=== PATIENT | male | born 1940 | race Caucasian/White ===

== ENCOUNTER → 2018-08-29 | Outpatient (CLI) | payer MEDICARE ==
[2018-08-28 11:41] LABS: ANION GAP 15.9; CHLORIDE,CL 99 mmol/L (101-111); SODIUM,NA 133 mmol/L (135-145)
--- NOTE | 2018-08-30 08:07 | US ---
CLINICAL HISTORY: 77-year-old hypertensive, diabetic male with "left stroke" now complaining of dizziness ("giddiness"). INTERPRETATION: Minimal nonulcerated, noncalcified mucosal irregularity carotid vessels suggesting early atheromatous plaque. Mildly elevated peak systolic flow velocities carotid artery circulation bilaterally (hypertension). *No hemodynamically significant or surgical stenosis documented by abnormal flow velocities common/internal carotid artery. Normal antegrade vertebral artery flow bilaterally. Peak systolic flow velocity right common carotid artery 149 cm/s; Right internal carotid artery 137 cm/s; right external carotid artery 109 cm/s. IC/CC ratio on the right 0.91. Peak systolic flow velocity left common carotid artery 135 cm/s; left internal carotid artery 138 cm/s; and, left external carotid artery 118 cm/s. IC/CC ratio on the left 1.02. Incidentally demonstrated tiny 5 mm hypoechoic cyst anteriorly lower midpole right lobe of the thyroid gland. CONCLUSION: No surgical stenosis. Tiny cyst right lobe of the thyroid gland.
== END ==
LOC: DL.CLIN 12:48
PROVIDERS: ATTEND Physician Assistant Medical
DX: I10 Essential (primary) hypertension (principal); E11.9 Type 2 diabetes mellitus without complications; R42 Dizziness and giddiness; K40.90 Unilateral inguinal hernia, without obstruction or gangrene, not specified as recurrent; E04.1 Nontoxic single thyroid nodule
CPT/HCPCS: 36415; 80053; 80061; 83036; 85025; 93880

== ENCOUNTER 2020-10-07 09:53 | Emergency (ER) | payer MEDICARE, OTHER ==
--- NOTE | 2020-10-07 11:10 | CT ---
EXAMINATION: Cervical Spine wo Cont SEX: Male AGE: 79 years CLINICAL HISTORY: 79-year-old male injured back of head in ground-level fall. Patient alert and oriented. Scan technique: Volume acquisition of data emergency unenhanced CT scan of the cervical spine obtained with patient lying supine on the Siemens multislice scanner [place], [place]. All data archived in the PACS system for storage, reformatting axial/sagittal/coronal planes and study. Interpretation: Negative exam. 1. No basal skull fracture. 2. Straightening of usual cervical lordosis (positional). 3. *No prevertebral soft tissue swelling, cervical fracture, spondylolisthesis (dislocation) or jumped locked facets. 4. Some reactive atlantoaxial sclerosis but no other evidence for significant cervical disc disease. 5. No cervical rib anomalies. Lung apices clear.
[2020-10-07 11:11] LABS: ANION GAP 13.3 mEq/L (7-13); CHLORIDE,CL 101 mmol/L (98-107); SODIUM,NA 138 mmol/L (136-145)
--- NOTE | 2020-10-07 11:16 | CT ---
EXAMINATION: Head wo Cont SEX: Male AGE: 79 years CLINICAL HISTORY: 79-year-old male injured in fall (hit back of head). Cervical spine "negative". Scan technique: Volume acquisition of data emergency unenhanced CT scan of the head and brain obtained with the patient lying supine on the Siemens multislice scanner [facility]. All data archived in the PACS system for storage, reformatting axial/sagittal/coronal planes and study (bone/soft tissue windows). Interpretation: Abnormal. 1. Asymmetric extracranial subcutaneous soft tissue hematoma over the occipital convexity, posteriorly, on the left. 2. Uniformly thick bony calvarium i.e. no sign of underlying or other skull fracture. 3. No brain contusion or extracerebral/intracranial epidural/subdural hematoma. 4. Atrophy symmetric/consistent with age. No hydrocephalus. Physiologic pineal/symmetric choroid plexus calcifications. 5. No supratentorial or posterior fossa mass lesion. 6. Scattered microvascular ischemic changes in the periventricular white matter (particularly prominent parietal lobe on the left). No sign of acute intracerebral, intraventricular or subarachnoid bleed. 7. Cerebellum and brainstem unremarkable for age. 8. Chronic mucoperiosteal inflammation paranasal sinuses. Dense sclerosis mastoid sinus on the right. CONCLUSION: Scalp hematoma. Paranasal sinusitis. Microvascular ischemic changes. No sign of skull fracture, brain contusion or intracranial bleed.
--- NOTE | 2020-10-07 11:54 | EDM.PDOC ---
ED HPI GENERAL MEDICAL PROBLEM - General Chief Complaint: General Stated Complaint: [id number] FELL BACK AND HIT HEAD AT HOME Time Seen by Provider: 10/07/20 11:21 Source of Information: Reports: Patient History Limitations: Reports: No Limitations - History of Present Illness INITIAL COMMENTS - FREE TEXT/NARRATIVE: This 79 yo male patient reports to the ED due to falling this morning. The patient reports he was in his driveway when he fell this morning. The patient denies any loss of consciousness before, during or after the fall. The patient reports he fell due to dizziness. The patient report increased dizziness over the past 2 days. The patient reports he has not been eating or drinking well over the past week due to not feeling hungry and the water not tasting good. The patient reports no recent changes in his medications. The patient reports he has not been seen by his primary care facility. The patient does use a cane for ambulation. Onset: Today Duration: Hour(s): Location: Reports: Head (Posterior left scalp contusion and abrasion) Quality: Reports: Ache, Dull Severity: Mild Improves with: Reports: None Worsens with: Reports: None Context: Reports: Activity Associated Symptoms: Reports: No Other Symptoms Treatments TRANSPORTATION MODELER: Reports: Other (see below) Other Treatments TRANSPORTATION MODELER: CT and labs - Related Data Allergies Allergy/AdvReac Type Severity Reaction Status Date / Time No Known Allergies Allergy Verified 10/17/18 07:03 Home Meds: Home Meds metFORMIN HCl [Metformin HCl] 1,000 mg PO BID 02/14/18 [History] Dapagliflozin Propanediol [Farxiga] 10 mg PO DAILY 02/26/18 [History] Insulin Detemir [Levemir Flextouch] 40 units SUBCUT DAILY 02/26/18 [History] Tamsulosin HCl [Flomax] 0.4 mg PO DAILY 02/26/18 [History] atorvaSTATin Calcium [Atorvastatin Calcium] 20 mg PO DAILY 02/26/18 [History] Aspirin 81 mg PO DAILY 05/21/18 [History] Oxybutynin [Oxybutynin ER] 10 mg PO DAILY 10/17/18 [History] lisinopriL [Lisinopril] 5 mg PO DAILY 10/17/18 [History] Past Medical History HEENT History: Reports: Other (See Below) Other HEENT History: BILATERAL EYE DRAINAGE/ SOME CRUSTING, PATIENT STATES IT IS NOT PAINFUL AND IS NORMAL FOR HIM Cardiovascular History: Reports: Hypertension, Stents Other Cardiovascular History: pT AND DENIE STENT PLACEMENT Respiratory History: Reports: None Gastrointestinal History: Reports: None Genitourinary History: Reports: Prostate Disorder, Other (See Below) Other Genitourinary History: URINARY HESITANCY Musculoskeletal History: Reports: Arthritis, Back Pain, Chronic, Other (See Below) Other Musculoskeletal History: CHRONIC SHOULDER PAIN Neurological History: Reports: CVA Psychiatric History: Reports: None Endocrine/Metabolic History: Reports: Diabetes, Type II Hematologic History: Reports: None Immunologic History: Reports: None Oncologic (Cancer) History: Reports: None Dermatologic History: Reports: None - Infectious Disease History Infectious Disease History: Reports: Chicken Pox - Past Surgical History Head Surgeries/Procedures: Reports: None HEENT Surgical History: Reports: None Cardiovascular Surgical History: Reports: Other (See Below) Other Cardiovascular Surgeries/Procedures: ANGIOGRAM GI Surgical History: Reports: Colonoscopy, Hernia, Inguinal Other GI Surgeries/Procedures: LAST BM TODAY Male Surgical History: Reports: None Other Male Surgeries/Procedures: DYSURIA Social & Family History - Family History Family Medical History: No Pertinent Family History - Caffeine Use Caffeine Use: Reports: Coffee Other Caffeine Use: 1-2 CUPS COFFEE ED ROS GENERAL - Review of Systems Review Of Systems: Comprehensive ROS is negative, except as noted in HPI. ED EXAM, GENERAL - Physical Exam Exam: See Below Exam Limited By: No Limitations General Appearance: Alert, WD/WN, Mild Distress Eye Exam: Bilateral Eye: EOMI, Normal Inspection, PERRL Ears: Normal External Exam, Normal Canal, Hearing Grossly Normal, Normal TMs Nose: Normal Inspection, Normal Mucosa, No Blood Throat/Mouth: Normal Inspection, Normal Lips, Normal Teeth, Normal Gums, Normal Oropharynx, Normal Voice, No Airway Compromise Head: Other (scalp contusion and abrasion left posterior scalp) Neck: Normal Inspection, Supple, Non-Tender, Full Range of Motion Respiratory/Chest: No Respiratory Distress, Lungs Clear, Normal Breath Sounds, No Accessory Muscle Use, Chest Non-Tender Cardiovascular: Normal Peripheral Pulses, Regular Rate, Rhythm, No Edema, No Gallop, No JVD, No Murmur, No Rub GI/Abdominal: Normal Bowel Sounds, Soft, Non-Tender, No Organomegaly, No Distention, No Abnormal Bruit, No Mass (Male) Exam: Deferred Rectal (Males) Exam: Deferred Back Exam: Normal Inspection, Full Range of Motion, NT Extremities: Normal Inspection, Normal Range of Motion, Non-Tender, Normal Capillary Refill, No Pedal Edema Neurological: Alert, Oriented, CN II-XII Intact, Normal Cognition, Normal Gait, Normal Reflexes, No Motor/Sensory Deficits Psychiatric: Normal Affect, Normal Mood Skin Exam: Warm, Dry, Intact, Normal Color, No Rash Lymphatic: No Adenopathy #1 Interpretation EKG Date: 10/07/20 Time: 11:03 Rhythm: NSR Rate (Beats/Min): 71 [place]: Normal P-Wave: Present QRS: Normal ST-T: Normal QT: Normal Comparison: No Change Course - Vital Signs Last Recorded V/S: Last Vital Signs Temp 96.9 F 10/07/20 10:40 Pulse 75 10/07/20 10:40 Resp 18 10/07/20 10:40 BP 143/65 H 10/07/20 10:40 Pulse Ox 97 10/07/20 10:40 Orthostatic Blood Pressure [ 120/67 Standing] Orthostatic Blood Pressure [ 134/62 Sitting] Orthostatic Blood Pressure [ 127/66 Supine] - Orders/Labs/Meds Labs: Laboratory Tests 10/07/20 10/07/20 10/07/20 Range/Units 10:33 10:45 10:45 WBC 9.0 (5.0-10.0) 10^3/uL RBC 4.38 L (4.6-6.2) 10^6/uL Hgb 13.5 L (14.0-18.0) g/dL Hct 39.8 L (40.0-54.0) % MCV 90.9 (80-100) fL MCH 30.8 (27.0-34.0) pg MCHC 33.9 (33.0-35.0) g/dL Plt Count 310 (150-450) 10^3/uL Neut % (Auto) 73.9 (42.2-75.2) % Lymph % (Auto) 12.1 L (20.5-50.1) % Gilliam % (Auto) 9.4 H (2-8) % Eos % (Auto) 4.4 H (1.0-3.0) % Baso % (Auto) 0.2 (0.0-1.0) % Sodium 138 (136-145) mmol/L Potassium 4.3 (3.5-5.1) mmol/L Chloride 101 (98-107) mmol/L Carbon Dioxide 28 (21-32) mmol/L Anion Gap 13.3 H (7-13) mEq/L BUN 17 (7-18) mg/dL Creatinine 0.76 (0.70-1.30) mg/dL Est Cr Clr Drug Dosing TNP Estimated GFR (MDRD) > 60 BUN/Creatinine Ratio 22.4 (No establ ref range) Glucose 234 H (70-99) mg/dL POC Glucose 235 H (70-99) mg/dL Calcium 8.8 (8.5-10.1) mg/dL Total Bilirubin 0.6 (0.2-1.0) mg/dL AST 15 (15-37) U/L ALT 32 (16-63) U/L Alkaline Phosphatase 115 (46-116) U/L Total Protein 6.4 (6.4-8.2) g/dL Albumin 3.3 L (3.4-5.0) g/dL Globulin 3.1 Albumin/Globulin Ratio 1.06 Departure - Departure Time of Disposition: 12:22 Disposition: Home, Self-Care 01 Condition: Fair Clinical Impression: Fall from ground level, Scalp contusion Sinusitis Qualifiers: Sinusitis location: frontal Chronicity: acute Recurrence: non-recurrent Qualified Code(s): J01.10 - Acute frontal sinusitis, unspecified - Discharge Information *PRESCRIPTION DRUG MONITORING PROGRAM REVIEWED*: Not Applicable *COPY OF PRESCRIPTION DRUG MONITORING REPORT IN PATIENT KIRTI: Not Applicable Instructions: Sinusitis, Adult, [id number], Fall Prevention in the Home, Adult Forms: ED Department Discharge Care Plan Goals: The patient was advised of the examination, lab and CT results during the visit. The patient was discharged with a script for Augmentin (500/125) #20 to take 1 by mouth 2 times per day for 10 days. The patient was encouraged to attempt to eat well balanced meals and drink plenty of fluids. The patient should follow-up with his primary care facility for continued evaluation and further management. If the patient has any additional symptoms or concerns, the patient should either return to the emergency department or visit his primary care facility. Sepsis Event Note (ED) - Evaluation Sepsis Screening Result: No Definite Risk - Focused Exam Vital Signs: Vital Signs Temp Pulse Resp BP Pulse Ox 10/07/20 10:40 96.9 F 75 18 143/65 H 97
== END 2020-10-07 13:14 | disposition home or self-care (01) ==
LOC: DL.ED 09:53
DX: S00.03XA Contusion of scalp, initial encounter (principal); J01.10 Acute frontal sinusitis, unspecified; E11.9 Type 2 diabetes mellitus without complications; I10 Essential (primary) hypertension; Z95.5 Presence of coronary angioplasty implant and graft; Z79.4 Long term (current) use of insulin; Z79.82 Long term (current) use of aspirin; Z79.899 Other long term (current) drug therapy; W22.8XXA Striking against or struck by other objects, initial encounter; Y92.009 Unspecified place in unspecified non-institutional (private) residence as the place of occurrence of the external cause
CPT/HCPCS: 36415; 70450; 72125; 80053; 82947; 85025; 99284-25

== ENCOUNTER → 2023-09-21 | Day surgery (SDC) | payer MEDICARE, OTHER ==
[~2023-09-21] MED LIST: Acetaminophen 325 MG Tab PO PRN; Acetaminophen/Codeine 300-30 MG Tab PO PRN; Ondansetron 4 MG/2 ML SDV IVPUSH PRN
[2023-09-21] MEDS: Tropicamide 1% Ophth Soln 15 ML Bottle EYELF ONE (09:10)
[2023-09-21] MEDS: Timolol Maleate 0.5% Ophth Soln 5 ML Bottle EYELF ONE (09:10)
[2023-09-21] MEDS: Phenylephrine 10% Ophth Soln 5 ML Bot EYELF ONE (09:10)
[2023-09-21] MEDS: Moxifloxacin 0.5% Ophth Soln 3 ML Bottle EYELF ONE (09:10)
[2023-09-21] MEDS: Proparacaine 0.5% Ophth Soln 15 ML Bottle EYELF ONE ×2 (09:10→09:48)
[2023-09-21] MEDS: Sodium Chloride 0.9% 10 ML Syringe FLUSH PRN (09:12)
[2023-09-21] MEDS: Cataract Ophth Solution EYELF ONE (09:12)
[2023-09-21] MEDS: Povidone-Iodine 5% Sterile Ophth Soln 30 ML Bottle EYELF ONE ×2 (09:12→09:48)
[2023-09-21] MEDS: Lidocaine 1% 30 ML SDV ONE (09:48)
[2023-09-21] MEDS: Diclofenac Sodium 0.1% Ophth Soln 5 ML Bottle EYELF ONE (09:48)
[2023-09-21] MEDS: Apraclonidine 0.5% Ophth Soln 5 ML Bot EYELF ONE (09:48)
[2023-09-21] MEDS: Dexamethasone/Neomycin/Polymyxin B Ophth Oint 3.5 GM Tube EYELF ONE (09:48)
[2023-09-21] MEDS: Vancomycin 500 MG SDV EYELF ONE (09:49)
[2023-09-21] MEDS: Dexamethasone 4 MG/ML SDV IOCULAR ONE (09:53)
== END ==
LOC: DL.SDS 08:51
PROVIDERS: ATTEND Ophthalmology
DX: E11.36 Type 2 diabetes mellitus with diabetic cataract (principal); H25.812 Combined forms of age-related cataract, left eye; I10 Essential (primary) hypertension; E78.5 Hyperlipidemia, unspecified; Z79.4 Long term (current) use of insulin; Z79.84 Long term (current) use of oral hypoglycemic drugs; Z79.82 Long term (current) use of aspirin; Z79.899 Other long term (current) drug therapy
CPT/HCPCS: 66984; A9270; J1100; J3370; V2632; 00142; 99100; J3490

== ENCOUNTER 2023-10-17 10:07 | Day surgery (SDC) | payer MEDICARE, OTHER ==
[2023-10-17] MEDS ORDERED: Acetaminophen 325 MG Tab PO PRN (10:15)
[2023-10-17] MEDS ORDERED: Acetaminophen/Codeine 300-30 MG Tab PO PRN (10:15)
[2023-10-17] MEDS ORDERED: Ondansetron 4 MG/2 ML SDV IVPUSH PRN (10:15)
[2023-10-17] MEDS: Sodium Chloride 0.9% 10 ML Syringe FLUSH PRN (10:50)
[2023-10-17] MEDS: Proparacaine 0.5% Ophth Soln 15 ML Bottle EYERT ONE ×2 (10:51→12:00)
[2023-10-17] MEDS: Moxifloxacin 0.5% Ophth Soln 3 ML Bottle EYERT ONE (10:52)
[2023-10-17] MEDS: Tropicamide 1% Ophth Soln 15 ML Bottle EYERT ONE (10:53)
[2023-10-17] MEDS: Povidone-Iodine 5% Sterile Ophth Soln 30 ML Bottle EYERT ONE ×2 (10:53→12:00)
[2023-10-17] MEDS: Phenylephrine 10% Ophth Soln 5 ML Bot EYERT ONE (10:56)
[2023-10-17] MEDS: Timolol Maleate 0.5% Ophth Soln 5 ML Bottle EYERT ONE (10:56)
[2023-10-17] MEDS: Cataract Ophth Solution EYERT ONE (10:57)
[2023-10-17] MEDS: Vancomycin 500 MG SDV EYERT ONE (12:00)
[2023-10-17] MEDS: Lidocaine 1% 30 ML SDV ONE (12:00)
[2023-10-17] MEDS: Diclofenac Sodium 0.1% Ophth Soln 5 ML Bottle EYERT ONE (12:01)
[2023-10-17] MEDS: Apraclonidine 0.5% Ophth Soln 5 ML Bot EYERT ONE (12:01)
[2023-10-17] MEDS: Dexamethasone/Neomycin/Polymyxin B Ophth Oint 3.5 GM Tube EYERT ONE (12:01)
== END 2023-10-17 12:40 | disposition home or self-care (01) ==
LOC: DL.SDS 10:07
PROVIDERS: ATTEND Ophthalmology
DX: E11.36 Type 2 diabetes mellitus with diabetic cataract (principal); H25.811 Combined forms of age-related cataract, right eye; E78.5 Hyperlipidemia, unspecified; I10 Essential (primary) hypertension; Z79.4 Long term (current) use of insulin; Z79.899 Other long term (current) drug therapy; Z79.82 Long term (current) use of aspirin
CPT/HCPCS: 66984; A9270; J3370; V2787; 00142; 99100; J3490

== ENCOUNTER 2024-04-11 13:45 | Emergency (ER) | payer MEDICARE, OTHER ==
[2024-04-11] MEDS ORDERED: Sodium Chloride 0.9% 10 ML Syringe FLUSH PRN (13:55)
[2024-04-11 14:31] LABS: BASOPHILS PERCENT AUTO 0.3 % (0.0-1.0); EOSINOPHILS PERCENT AUTO 1.1 % (1.0-3.0); HEMATOCRIT 36.2 % (40.0-54.0); HEMOGLOBIN 12.1 g/dL (14.0-18.0); LYMPHOCYTES PERCENT AUTO 6.1 % (20.5-50.1); MEAN CORPUSCULAR HEMOGLOBIN 30.6 pg (27.0-34.0); MEAN CORPUSCULAR HGB CONC 33.4 g/dL (33.0-35.0); MEAN CORPUSCULAR VOLUME 91.4 fL (80-100); MONOCYTES PERCENT AUTO 8.2 % (2-8); NEUTROPHILS PERCENT AUTO 84.3 % (42.2-75.2); PLATELET COUNT,PLT 409 10^3/uL (150-450); RED BLOOD CELL COUNT 3.96 10^6/uL (4.6-6.2); WHITE BLOOD CELL COUNT,WBC 11.5 10^3/uL (5.0-10.0)
[2024-04-11 14:53] LABS: ALANINE AMINOTRANSFERASE,ALT 15 U/L (16-63); ALBUMIN 3.1 g/dL (3.4-5.0); ALKALINE PHOSPHATASE 94 U/L (46-116); ANION GAP 12.7 mEq/L (7-13); ASPARTATE AMNIOTRANSFERASE,AST 22 U/L (15-37); BILIRUBIN TOTAL 0.3 mg/dL (0.2-1.0); BLOOD UREA NITROGEN,BUN 14 mg/dL (7-18); BUN/CREATININE RATIO 18.2 (No establ ref range); CALCIUM 8.8 mg/dL (8.5-10.1); CARBON DIOXIDE,CO2 27 mmol/L (21-32); CHLORIDE,CL 102 mmol/L (98-107); CREATININE 0.77 mg/dL (0.70-1.30); GLUCOSE RANDOM 77 mg/dL (70-99); MAGNESIUM 1.8 mg/dL (1.8-2.4); POTASSIUM,K 3.7 mmol/L (3.5-5.1); PROTEIN TOTAL,TP 6.3 g/dL (6.4-8.2); SODIUM,NA 138 mmol/L (136-145)
[2024-04-11 14:56] LABS: A/G RATIO 0.97; C-REACTIVE PROTEIN < 0.50 ng/dL (<=0.50); ESTIMATED GFR 90 mL/min (>=60)
[2024-04-11 15:00] LABS: HEMOGLOBIN A1C 6.8 % (<5.7)
== END 2024-04-11 15:35 | disposition home or self-care (01) ==
LOC: DL.ED 13:45
DX: E11.649 Type 2 diabetes mellitus with hypoglycemia without coma (principal); I10 Essential (primary) hypertension; Z79.82 Long term (current) use of aspirin; Z79.899 Other long term (current) drug therapy; Z79.84 Long term (current) use of oral hypoglycemic drugs; Z79.4 Long term (current) use of insulin
CPT/HCPCS: 36415; 80053; 82947; 83036; 83735; 85025; 86140; 99284; 99285

== ENCOUNTER 2024-12-27 14:19 | Inpatient (IN) | payer MEDICARE, OTHER ==
[2024-12-28] MEDS ORDERED: Ondansetron 4 MG/2 ML SDV IVPUSH PRN (12:40)
[2024-12-28] MEDS ORDERED: 50% Dextrose in Water 50 ML Syringe IVPUSH PRN (12:40)
[2024-12-28] MEDS ORDERED: Sodium Chloride 0.9% 10 ML Syringe FLUSH PRN ×2 (12:40)
[2024-12-28] MEDS ORDERED: Sennosides/Docusate Sodium 50-8.6 MG Tab PO PRN (12:40)
[2024-12-28] MEDS: Insulin Glarg,Human.Rec.Analog 100 Unit/ML 10 ML Vial SUBCUT SCH (20:51)
[2024-12-28] MEDS ORDERED: Sodium Chloride 0.9% 10 ML Syringe FLUSH SCH (21:00)
[2024-12-28] MEDS: Sodium Chloride 0.9% 10 ML Syringe FLUSH SCH (21:04)
[2024-12-29 06:40] LABS: BASOPHILS PERCENT AUTO 0.3 % (0.0-1.0); EOSINOPHILS PERCENT AUTO 8.8 % (1.0-3.0); LYMPHOCYTES PERCENT AUTO 11.4 % (20.5-50.1); MONOCYTES PERCENT AUTO 13.9 % (2-8); NEUTROPHILS PERCENT AUTO 65.6 % (42.2-75.2); PLATELET COUNT,PLT 422 10^3/uL (150-450); RED BLOOD CELL COUNT 3.42 10^6/uL (4.6-6.2); WHITE BLOOD CELL COUNT,WBC 11.1 10^3/uL (5.0-10.0)
[2024-12-29 07:05] LABS: ALANINE AMINOTRANSFERASE,ALT 15.0 U/L (16-63); ASPARTATE AMNIOTRANSFERASE,AST 12.0 U/L (15-37); BILIRUBIN TOTAL 0.5 mg/dL (0.2-1.0); BLOOD UREA NITROGEN,BUN 12.0 mg/dL (7-18); CARBON DIOXIDE,CO2 29.0 mmol/L (21-32); CHLORIDE,CL 96.0 mmol/L (98-107); CREATININE 0.47 mg/dL (0.70-1.30); EST CRCL DRUG DOSING (CG) 113.29 mL/min; GLUCOSE RANDOM 159.0 mg/dL (70-99); POTASSIUM,K 4.0 mmol/L (3.5-5.1); PROTEIN TOTAL,TP 5.7 g/dL (6.4-8.2); SODIUM,NA 131.0 mmol/L (136-145)
[2024-12-29 07:08] LABS: A/G RATIO 0.63; ESTIMATED GFR 104.0 mL/min (>=60)
[2024-12-29] MEDS: Oxybutynin 5 MG Tab.ER PO SCH (08:26)
[2024-12-29] MEDS: Magnesium Sulfate 2 GM/50 mL 2 GM in Premix Bag 1 BAG IV ONE (08:31)
[2024-12-29] MEDS: Insulin Glarg,Human.Rec.Analog 100 Unit/ML 10 ML Vial SUBCUT SCH (20:36)
[2024-12-30 06:43] LABS: BASOPHILS PERCENT AUTO 0.2 % (0.0-1.0); EOSINOPHILS PERCENT AUTO 5.8 % (1.0-3.0); LYMPHOCYTES PERCENT AUTO 9.0 % (20.5-50.1); MONOCYTES PERCENT AUTO 13.4 % (2-8); NEUTROPHILS PERCENT AUTO 71.6 % (42.2-75.2); PLATELET COUNT,PLT 468 10^3/uL (150-450); RED BLOOD CELL COUNT 3.57 10^6/uL (4.6-6.2); WHITE BLOOD CELL COUNT,WBC 12.3 10^3/uL (5.0-10.0)
[2024-12-30 07:15] LABS: ALANINE AMINOTRANSFERASE,ALT 20.0 U/L (16-63); ASPARTATE AMNIOTRANSFERASE,AST 15.0 U/L (15-37); BILIRUBIN TOTAL 0.7 mg/dL (0.2-1.0); BLOOD UREA NITROGEN,BUN 10.0 mg/dL (7-18); CARBON DIOXIDE,CO2 30.0 mmol/L (21-32); CHLORIDE,CL 97.0 mmol/L (98-107); CREATININE 0.52 mg/dL (0.70-1.30); EST CRCL DRUG DOSING (CG) 102.4 mL/min; GLUCOSE RANDOM 137.0 mg/dL (70-99); POTASSIUM,K 3.9 mmol/L (3.5-5.1); PROTEIN TOTAL,TP 6.2 g/dL (6.4-8.2); SODIUM,NA 134.0 mmol/L (136-145)
[2024-12-30 07:16] LABS: A/G RATIO 0.68; ESTIMATED GFR 101.0 mL/min (>=60)
[2024-12-31 06:37] LABS: BASOPHILS PERCENT AUTO 0.1 % (0.0-1.0); EOSINOPHILS PERCENT AUTO 4.1 % (1.0-3.0); LYMPHOCYTES PERCENT AUTO 12.1 % (20.5-50.1); MONOCYTES PERCENT AUTO 13.0 % (2-8); NEUTROPHILS PERCENT AUTO 70.7 % (42.2-75.2); PLATELET COUNT,PLT 482 10^3/uL (150-450); RED BLOOD CELL COUNT 3.15 10^6/uL (4.6-6.2); WHITE BLOOD CELL COUNT,WBC 14.0 10^3/uL (5.0-10.0)
[2024-12-31 07:06] LABS: ALANINE AMINOTRANSFERASE,ALT 18.0 U/L (16-63); ASPARTATE AMNIOTRANSFERASE,AST 13.0 U/L (15-37); BILIRUBIN TOTAL 0.7 mg/dL (0.2-1.0); BLOOD UREA NITROGEN,BUN 16.0 mg/dL (7-18); CARBON DIOXIDE,CO2 31.0 mmol/L (21-32); CHLORIDE,CL 98.0 mmol/L (98-107); CREATININE 0.51 mg/dL (0.70-1.30); EST CRCL DRUG DOSING (CG) 104.41 mL/min; GLUCOSE RANDOM 160.0 mg/dL (70-99); POTASSIUM,K 4.2 mmol/L (3.5-5.1); PROTEIN TOTAL,TP 5.8 g/dL (6.4-8.2); SODIUM,NA 132.0 mmol/L (136-145)
[2024-12-31 07:11] LABS: A/G RATIO 0.61; ESTIMATED GFR 101.0 mL/min (>=60)
[2024-12-31 12:39] LABS: APPEARANCE,URINE CLEAR (CLEAR); GLUCOSE,URINE 500 (NEGATIVE); OCCULT BLOOD,URINE MODERATE (NEGATIVE)
[2024-12-31 13:05] LABS: EPITHELIAL CELLS,URINE RARE /HPF (NOT SEEN)
[2025-01-01 06:58] LABS: BLOOD UREA NITROGEN,BUN 14.0 mg/dL (7-18); CARBON DIOXIDE,CO2 30.0 mmol/L (21-32); CHLORIDE,CL 98.0 mmol/L (98-107); CREATININE 0.48 mg/dL (0.70-1.30); EST CRCL DRUG DOSING (CG) 110.93 mL/min; GLUCOSE RANDOM 114.0 mg/dL (70-99); POTASSIUM,K 4.0 mmol/L (3.5-5.1); SODIUM,NA 133.0 mmol/L (136-145)
[2025-01-01 07:03] LABS: BASOPHILS PERCENT AUTO 0.4 % (0.0-1.0); EOSINOPHILS PERCENT AUTO 8.8 % (1.0-3.0); LYMPHOCYTES PERCENT AUTO 14.8 % (20.5-50.1); MONOCYTES PERCENT AUTO 11.6 % (2-8); NEUTROPHILS PERCENT AUTO 64.4 % (42.2-75.2); PLATELET COUNT,PLT 560 10^3/uL (150-450); RED BLOOD CELL COUNT 3.31 10^6/uL (4.6-6.2); WHITE BLOOD CELL COUNT,WBC 10.3 10^3/uL (5.0-10.0)
[2025-01-01 07:21] LABS: ESTIMATED GFR 103.0 mL/min (>=60)
[2025-01-02 06:26] LABS: BASOPHILS PERCENT AUTO 0.3 % (0.0-1.0); EOSINOPHILS PERCENT AUTO 7.6 % (1.0-3.0); LYMPHOCYTES PERCENT AUTO 14.9 % (20.5-50.1); MONOCYTES PERCENT AUTO 11.9 % (2-8); NEUTROPHILS PERCENT AUTO 65.3 % (42.2-75.2); PLATELET COUNT,PLT 602 10^3/uL (150-450); RED BLOOD CELL COUNT 3.45 10^6/uL (4.6-6.2); WHITE BLOOD CELL COUNT,WBC 10.5 10^3/uL (5.0-10.0)
[2025-01-02 06:55] LABS: BLOOD UREA NITROGEN,BUN 15.0 mg/dL (7-18); CARBON DIOXIDE,CO2 32.0 mmol/L (21-32); CHLORIDE,CL 97.0 mmol/L (98-107); CREATININE 0.46 mg/dL (0.70-1.30); EST CRCL DRUG DOSING (CG) 115.75 mL/min; GLUCOSE RANDOM 123.0 mg/dL (70-99)
[2025-01-02 07:05] LABS: POTASSIUM,K 4.3 mmol/L (3.5-5.1); SODIUM,NA 135.0 mmol/L (136-145)
[2025-01-02 07:12] LABS: ESTIMATED GFR 104.0 mL/min (>=60)
[2025-01-03 07:13] LABS: PLATELET COUNT,PLT 660 10^3/uL (150-450); RED BLOOD CELL COUNT 3.52 10^6/uL (4.6-6.2); WHITE BLOOD CELL COUNT,WBC 11.7 10^3/uL (5.0-10.0)
[2025-01-03 07:21] LABS: BASOPHILS PERCENT AUTO 0.3 % (0.0-1.0); EOSINOPHILS PERCENT AUTO 5.8 % (1.0-3.0); LYMPHOCYTES PERCENT AUTO 11.8 % (20.5-50.1); MONOCYTES PERCENT AUTO 10.8 % (2-8); NEUTROPHILS PERCENT AUTO 71.3 % (42.2-75.2)
[2025-01-03 07:28] LABS: BLOOD UREA NITROGEN,BUN 15.0 mg/dL (7-18); CARBON DIOXIDE,CO2 29.0 mmol/L (21-32); CHLORIDE,CL 92.0 mmol/L (98-107); CREATININE 0.5 mg/dL (0.70-1.30); EST CRCL DRUG DOSING (CG) 106.49 mL/min; ESTIMATED GFR 102.0 mL/min (>=60); GLUCOSE RANDOM 119.0 mg/dL (70-99); POTASSIUM,K 4.3 mmol/L (3.5-5.1); SODIUM,NA 129.0 mmol/L (136-145)
[2025-01-03 07:53] LABS: BAND PERCENT MAN 1 %; EOSINOPHILS PERCENT MAN 6 % (1-3); LYMPHOCYTES PERCENT MAN 13 % (20-50); MONOCYTES PERCENT MAN 7 % (2-8); SEG NEUTROPHILS PERCENT MAN 72 % (42-75)
[2025-01-04 09:11] LABS: BASOPHILS PERCENT AUTO 0.4 % (0.0-1.0); EOSINOPHILS PERCENT AUTO 7.6 % (1.0-3.0); LYMPHOCYTES PERCENT AUTO 11.6 % (20.5-50.1); MONOCYTES PERCENT AUTO 10.8 % (2-8); NEUTROPHILS PERCENT AUTO 69.6 % (42.2-75.2); PLATELET COUNT,PLT 647 10^3/uL (150-450); RED BLOOD CELL COUNT 3.55 10^6/uL (4.6-6.2); WHITE BLOOD CELL COUNT,WBC 10.5 10^3/uL (5.0-10.0)
[2025-01-04 09:25] LABS: BLOOD UREA NITROGEN,BUN 19.0 mg/dL (7-18); CARBON DIOXIDE,CO2 28.0 mmol/L (21-32); CREATININE 0.58 mg/dL (0.70-1.30); EST CRCL DRUG DOSING (CG) 91.81 mL/min; GLUCOSE RANDOM 206.0 mg/dL (70-99)
[2025-01-04 09:30] LABS: CHLORIDE,CL 94.0 mmol/L (98-107); ESTIMATED GFR 97.0 mL/min (>=60); POTASSIUM,K 4.6 mmol/L (3.5-5.1); SODIUM,NA 127.0 mmol/L (136-145)
[2025-01-05 08:26] LABS: PLATELET COUNT,PLT 689 10^3/uL (150-450); RED BLOOD CELL COUNT 3.42 10^6/uL (4.6-6.2); WHITE BLOOD CELL COUNT,WBC 10.9 10^3/uL (5.0-10.0)
[2025-01-05 08:42] LABS: BLOOD UREA NITROGEN,BUN 15.0 mg/dL (7-18); CARBON DIOXIDE,CO2 30.0 mmol/L (21-32); CREATININE 0.54 mg/dL (0.70-1.30); EST CRCL DRUG DOSING (CG) 98.61 mL/min; GLUCOSE RANDOM 118.0 mg/dL (70-99); POTASSIUM,K 4.6 mmol/L (3.5-5.1)
[2025-01-05 08:43] LABS: LYMPHOCYTES PERCENT AUTO 11.8 % (20.5-50.1); NEUTROPHILS PERCENT AUTO 69.8 % (42.2-75.2)
[2025-01-05 08:44] LABS: BASOPHILS PERCENT AUTO 0.3 % (0.0-1.0); EOSINOPHILS PERCENT AUTO 7.0 % (1.0-3.0); MONOCYTES PERCENT AUTO 11.1 % (2-8)
[2025-01-05 08:51] LABS: CHLORIDE,CL 96.0 mmol/L (98-107); ESTIMATED GFR 100.0 mL/min (>=60); SODIUM,NA 130.0 mmol/L (136-145)
[2025-01-05 08:55] LABS: SEG NEUTROPHILS PERCENT MAN 74 % (42-75)
[2025-01-05 08:56] LABS: BAND PERCENT MAN 1 %; EOSINOPHILS PERCENT MAN 5 % (1-3); LYMPHOCYTES PERCENT MAN 13 % (20-50); MONOCYTES PERCENT MAN 7 % (2-8)
[2025-01-06 08:18] LABS: BASOPHILS PERCENT AUTO 0.4 % (0.0-1.0); EOSINOPHILS PERCENT AUTO 5.2 % (1.0-3.0); LYMPHOCYTES PERCENT AUTO 11.0 % (20.5-50.1); MONOCYTES PERCENT AUTO 9.3 % (2-8); NEUTROPHILS PERCENT AUTO 74.1 % (42.2-75.2); PLATELET COUNT,PLT 700 10^3/uL (150-450); RED BLOOD CELL COUNT 3.69 10^6/uL (4.6-6.2); WHITE BLOOD CELL COUNT,WBC 11.7 10^3/uL (5.0-10.0)
[2025-01-06 08:32] LABS: BLOOD UREA NITROGEN,BUN 14.0 mg/dL (7-18); CARBON DIOXIDE,CO2 29.0 mmol/L (21-32); CHLORIDE,CL 96.0 mmol/L (98-107); CREATININE 0.41 mg/dL (0.70-1.30); EST CRCL DRUG DOSING (CG) 129.87 mL/min; GLUCOSE RANDOM 144.0 mg/dL (70-99); POTASSIUM,K 4.6 mmol/L (3.5-5.1)
[2025-01-06 08:35] LABS: ESTIMATED GFR 108.0 mL/min (>=60); SODIUM,NA 129.0 mmol/L (136-145)
[2025-01-06] MEDS: Magnesium Sulfate 2 GM/50 mL 2 GM in Premix Bag 1 BAG IV ONE (09:57)
[2025-01-07 08:31] LABS: BASOPHILS PERCENT AUTO 0.4 % (0.0-1.0); EOSINOPHILS PERCENT AUTO 5.2 % (1.0-3.0); LYMPHOCYTES PERCENT AUTO 11.6 % (20.5-50.1); MONOCYTES PERCENT AUTO 9.6 % (2-8); NEUTROPHILS PERCENT AUTO 73.2 % (42.2-75.2); PLATELET COUNT,PLT 751 10^3/uL (150-450); RED BLOOD CELL COUNT 3.78 10^6/uL (4.6-6.2); WHITE BLOOD CELL COUNT,WBC 11.0 10^3/uL (5.0-10.0)
[2025-01-07 08:51] LABS: BLOOD UREA NITROGEN,BUN 12.0 mg/dL (7-18); CARBON DIOXIDE,CO2 31.0 mmol/L (21-32); CHLORIDE,CL 94.0 mmol/L (98-107); CREATININE 0.44 mg/dL (0.70-1.30); EST CRCL DRUG DOSING (CG) 121.02 mL/min; GLUCOSE RANDOM 133.0 mg/dL (70-99); POTASSIUM,K 4.4 mmol/L (3.5-5.1); SODIUM,NA 128.0 mmol/L (136-145)
[2025-01-07 08:55] LABS: ESTIMATED GFR 106.0 mL/min (>=60)
[2025-01-07] MEDS: Insulin Glarg,Human.Rec.Analog 100 Unit/ML 10 ML Vial SUBCUT SCH (22:39)
[2025-01-08 08:36] LABS: BLOOD UREA NITROGEN,BUN 17.0 mg/dL (7-18); CARBON DIOXIDE,CO2 32.0 mmol/L (21-32); CHLORIDE,CL 91.0 mmol/L (98-107); CREATININE 0.56 mg/dL (0.70-1.30); EST CRCL DRUG DOSING (CG) 95.08 mL/min; GLUCOSE RANDOM 144.0 mg/dL (70-99); POTASSIUM,K 4.6 mmol/L (3.5-5.1); SODIUM,NA 128.0 mmol/L (136-145)
[2025-01-08 08:42] LABS: ESTIMATED GFR 98.0 mL/min (>=60)
[2025-01-08 13:11] LABS: BLOOD UREA NITROGEN,BUN 20.0 mg/dL (7-18); CARBON DIOXIDE,CO2 31.0 mmol/L (21-32); CHLORIDE,CL 91.0 mmol/L (98-107); CREATININE 0.65 mg/dL (0.70-1.30); EST CRCL DRUG DOSING (CG) 81.92 mL/min; GLUCOSE RANDOM 259.0 mg/dL (70-99); POTASSIUM,K 4.7 mmol/L (3.5-5.1); SODIUM,NA 128.0 mmol/L (136-145)
[2025-01-08 13:16] LABS: ESTIMATED GFR 94.0 mL/min (>=60)
[2025-01-08 15:14] LABS: BLOOD UREA NITROGEN,BUN 24.0 mg/dL (7-18); CARBON DIOXIDE,CO2 27.0 mmol/L (21-32); CHLORIDE,CL 92.0 mmol/L (98-107); CREATININE 0.73 mg/dL (0.70-1.30); EST CRCL DRUG DOSING (CG) 72.94 mL/min; GLUCOSE RANDOM 309.0 mg/dL (70-99); POTASSIUM,K 5.2 mmol/L (3.5-5.1); SODIUM,NA 127.0 mmol/L (136-145)
[2025-01-08 15:16] LABS: ESTIMATED GFR 91.0 mL/min (>=60)
[2025-01-08 19:03] LABS: BLOOD UREA NITROGEN,BUN 25.0 mg/dL (7-18); CARBON DIOXIDE,CO2 29.0 mmol/L (21-32); CHLORIDE,CL 93.0 mmol/L (98-107); CREATININE 0.98 mg/dL (0.70-1.30); EST CRCL DRUG DOSING (CG) 54.33 mL/min; ESTIMATED GFR 77.0 mL/min (>=60); GLUCOSE RANDOM 395.0 mg/dL (70-99); POTASSIUM,K 5.4 mmol/L (3.5-5.1); SODIUM,NA 128.0 mmol/L (136-145)
[2025-01-09 06:17] LABS: BLOOD UREA NITROGEN,BUN 22.0 mg/dL (7-18); CARBON DIOXIDE,CO2 31.0 mmol/L (21-32); CHLORIDE,CL 97.0 mmol/L (98-107); CREATININE 0.61 mg/dL (0.70-1.30); EST CRCL DRUG DOSING (CG) 87.29 mL/min; GLUCOSE RANDOM 110.0 mg/dL (70-99); POTASSIUM,K 4.5 mmol/L (3.5-5.1); SODIUM,NA 134.0 mmol/L (136-145)
[2025-01-09 06:20] LABS: ESTIMATED GFR 96.0 mL/min (>=60)
[2025-01-12 10:35] LABS: BASOPHILS PERCENT AUTO 0.3 % (0.0-1.0); EOSINOPHILS PERCENT AUTO 3.0 % (1.0-3.0); LYMPHOCYTES PERCENT AUTO 9.9 % (20.5-50.1); MONOCYTES PERCENT AUTO 9.8 % (2-8); NEUTROPHILS PERCENT AUTO 77.0 % (42.2-75.2); PLATELET COUNT,PLT 695 10^3/uL (150-450); RED BLOOD CELL COUNT 3.64 10^6/uL (4.6-6.2); WHITE BLOOD CELL COUNT,WBC 11.0 10^3/uL (5.0-10.0)
[2025-01-12 10:52] LABS: BLOOD UREA NITROGEN,BUN 19.0 mg/dL (7-18); CARBON DIOXIDE,CO2 29.0 mmol/L (21-32); CHLORIDE,CL 92.0 mmol/L (98-107); CREATININE 0.76 mg/dL (0.70-1.30); EST CRCL DRUG DOSING (CG) 70.06 mL/min; POTASSIUM,K 5.2 mmol/L (3.5-5.1)
[2025-01-12 10:57] LABS: SODIUM,NA 128.0 mmol/L (136-145)
[2025-01-12 11:06] LABS: ESTIMATED GFR 90.0 mL/min (>=60); GLUCOSE RANDOM 406.0 mg/dL (70-99)
[2025-01-13 06:35] LABS: BLOOD UREA NITROGEN,BUN 17.0 mg/dL (7-18); CARBON DIOXIDE,CO2 32.0 mmol/L (21-32); CHLORIDE,CL 96.0 mmol/L (98-107); CREATININE 0.57 mg/dL (0.70-1.30); EST CRCL DRUG DOSING (CG) 93.42 mL/min; GLUCOSE RANDOM 84.0 mg/dL (70-99); POTASSIUM,K 4.3 mmol/L (3.5-5.1)
[2025-01-13 06:43] LABS: ESTIMATED GFR 98.0 mL/min (>=60)
[2025-01-13 06:44] LABS: SODIUM,NA 136.0 mmol/L (136-145)
[2025-01-15 10:31] LABS: BLOOD UREA NITROGEN,BUN 22.0 mg/dL (7-18); CARBON DIOXIDE,CO2 32.0 mmol/L (21-32); CHLORIDE,CL 94.0 mmol/L (98-107); CREATININE 0.77 mg/dL (0.70-1.30); EST CRCL DRUG DOSING (CG) 69.15 mL/min; GLUCOSE RANDOM 282.0 mg/dL (70-99); POTASSIUM,K 4.7 mmol/L (3.5-5.1); SODIUM,NA 131.0 mmol/L (136-145)
[2025-01-15 10:33] LABS: ESTIMATED GFR 89.0 mL/min (>=60)
[2025-01-16] MEDS ORDERED: Insulin Glarg,Human.Rec.Analog 100 Unit/ML 10 ML Vial SUBCUT SCH (21:00)
== END 2025-01-16 09:45 | DRG 948 ==
LOC: DL.MS 12-28 15:37
PROVIDERS: ADMIT Student in an Organized Health Care Education/Training Program; ATTEND Internal Medicine
DX: R53.81 Other malaise (principal); E87.1 Hypo-osmolality and hyponatremia; R29.6 Repeated falls; E11.9 Type 2 diabetes mellitus without complications; R55 Syncope and collapse; R05.3 Chronic cough; H91.90 Unspecified hearing loss, unspecified ear; H26.9 Unspecified cataract; M19.90 Unspecified osteoarthritis, unspecified site; G89.29 Other chronic pain; M79.89 Other specified soft tissue disorders; D53.9 Nutritional anemia, unspecified; R33.9 Retention of urine, unspecified; R42 Dizziness and giddiness; R31.9 Hematuria, unspecified; E86.0 Dehydration; E83.42 Hypomagnesemia; E88.09 Other disorders of plasma-protein metabolism, not elsewhere classified; Z98.890 Other specified postprocedural states; Z98.52 Vasectomy status; Z87.81 Personal history of (healed) traumatic fracture; Z79.899 Other long term (current) drug therapy; Z79.02 Long term (current) use of antithrombotics/antiplatelets; Z79.82 Long term (current) use of aspirin; Z79.4 Long term (current) use of insulin; Z79.84 Long term (current) use of oral hypoglycemic drugs; S42.202D Unspecified fracture of upper end of left humerus, subsequent encounter for fracture with routine healing
CPT/HCPCS: 36415; 71046; 73130-LT; 80048; 80053; 81001; 82947; 83735; 84100; 84295; 85025; 87040; 93010; 97110-GO; 97110-GP; 97116-GP; 97161-GP; 97165-GO; 97530-GO; 97530-GP; 99305; 99309; 99316; A9270-GY; J0692; J1815-GY; J3475; J7030; J7131